=== PATIENT | female | born 1990 | race Caucasian/White ===

== ENCOUNTER 2022-02-24 13:51 | Emergency (ER) | payer OTHER ==
[~2022-02-24] VITALS: Ht 165.1 cm; Wt 72.6 kg
[2022-02-24] MEDS ORDERED: ACETAMINOPHEN ES 500 MG TABLET ONE (14:23)
[2022-02-24] MEDS: ACETAMINOPHEN ES 500 MG TABLET PO ONE (14:27)
[2022-02-24] MEDS ORDERED: KETOROLAC TROMETHAMINE INJ 60 MG/2 ML VIAL IM ONE (15:19)
[2022-02-24] MEDS ORDERED: GUAIFENESIN/D-METHORPHAN HB 5 ML UDC ONE (15:19)
[2022-02-24 15:22] VITALS: BP 125/80
[2022-02-24] MEDS: KETOROLAC TROMETHAMINE INJ 60 MG/2 ML VIAL IM ONE (15:22)
[2022-02-24] MEDS: GUAIFENESIN/D-METHORPHAN HB 5 ML UDC PO ONE (15:22)
[2022-02-24] MEDS ORDERED: IBUP-1957 PO (16:27)
[2022-02-24] MEDS ORDERED: BENZ-13 PO (16:27)
[2022-02-24] MEDS ORDERED: GUAI1TBM19 PO (16:27)
[2022-02-24] MEDS ORDERED: OSEL75CA PO (17:09)
== END 2022-02-24 17:21 | disposition home or self-care (01) ==
LOC: ER 13:51
DX: J10.1 Influenza due to other identified influenza virus with other respiratory manifestations (principal); Z20.822 Contact with and (suspected) exposure to COVID-19
CPT/HCPCS: 71045; 87426; 87804; 96372; 99284; C9803; J1885